=== PATIENT | male | born 1930 | race Hispanic/Latino ===

== ENCOUNTER 2017-04-18 09:50 | Emergency (ER) | payer MEDICARE ==
[2017-04-18 09:50] VITALS: BMI 31.1
[2017-04-18] MEDS ORDERED: Famotidine 20mg/50ml 20 MG/50 ML BAG IVPB STA (11:07)
--- NOTE | 2017-04-18 11:18 | ED PDOC ---
Arrival/HPI - General Chief Complaint: GI Problem Time Seen by Provider: 04/18/17 10:58 Historian: Patient - History of Present Illness Narrative History of Present Illness (Text): 04/18/17 11:14 A 86 year old male, whose past medical history includes hypertension, atrial fibrillation, CAD and open heart surgery, presents to the emergency department complaining of increased nausea for 3 days. Patient also reports severe right arm and shoulder pain for one week. Patient was seen by his PMD for same pain and diagnosed with musculoskeletal. Patient denies any fever, chills, vomiting, diarrhea, abdominal pain, chest pain, shortness of breath or any other complaints. Time/Duration: 1 week Symptom Course: Unchanged Quality: Other Severity Level: Severe Context: Home Past Medical History - Provider Review Nursing Documentation Reviewed: Yes - Infectious Disease Hx of Infectious Diseases: None - Tetanus Immunization Tetanus Immunization: Unknown - Cardiac Hx Cardiac Disorders: Yes (cabg 4 vessels) Hx Hypertension: Yes - Pulmonary Hx Respiratory Disorders: No - Neurological HX Cerebrovascular Accident: Yes - HEENT Hx HEENT Disorder: Yes (pt takes timolol eye gtts, but can't remember why) Hx Cataracts: Yes (b/l sx) Hx Glaucoma: Yes (B/L) Other/Comment: [place], uses hearing aids - Renal Hx Renal Disorder: No - Endocrine/Metabolic Hx Diabetes Mellitus Type 2: Yes - Hematological/Oncological Hx Blood Disorders: No - Integumentary Hx Dermatological Disorder: No - Musculoskeletal/Rheumatological Hx Falls: Yes (past) - Gastrointestinal Hx Gastrointestinal Disorders: Yes Hx Gastroesophageal Reflux: Yes Hx Gastrointestinal Ulcer: Yes - Genitourinary/Gynecological Hx Genitourinary Disorders: Yes Hx Hematuria: Yes Hx Prostate Problems: Yes (TUR) Hx Urinary Tract Infection: Yes - Psychiatric Hx Psychophysiologic Disorder: No Hx Depression: Yes Hx Emotional Abuse: No Hx Physical Abuse: No Hx Substance Use: No - Surgical History Hx Appendectomy: Yes Hx Cardiac Catheterization: Yes Hx Cholecystectomy: Yes Hx Open Heart Surgery: Yes Other/Comment: meatal stenosis sx, carpal tunnel left hand - Anesthesia Hx Anesthesia Reactions: Yes (laryngeal spasm after fentanyl, according to family) Hx Malignant Hyperthermia: No - Suicidal Assessment Feels Threatened In Home Enviroment: No Family/Social History - Physician Review Nursing Documentation Reviewed: Yes Family/Social History: No Known Family HX Smoking Status: Former Smoker Hx Alcohol Use: No Hx Substance Use: No Hx Substance Use Treatment: No Allergies/Home Meds Allergies/Adverse Reactions: Allergies fentanyl Allergy (Verified 03/23/16 19:08) laryengeal spasm anesthesia reaction laryngeal spasm Home Medications: Home Meds Medication Instructions Recorded Confirmed Atorvastatin Calcium [Lipitor] 10 mg PO DAILY 11/17/11 04/18/17 Metformin HCl [Metformin HCl] 500 mg PO BID 04/11/15 04/18/17 Tamsulosin [Flomax] 0.4 mg PO DAILY 04/11/15 04/18/17 Timolol 0.5% Ophth [Timoptic 0.5% 1 drop OU DAILY 04/11/15 04/18/17 Ophth Soln] Ranitidine HCl [Zantac] 150 mg PO BID 03/23/16 04/18/17 Apixaban [Eliquis] 2.5 mg PO BID 04/18/17 04/18/17 DULoxetine [Cymbalta] 30 mg PO DAILY 04/18/17 04/18/17 Metoclopramide [Reglan] 2.5 mg PO PRN PRN 04/18/17 04/18/17 Phenobarb/Hyoscy/Atropine/Scop 16.2 mg PO PRN 04/18/17 04/18/17 [ Elixir] Polyethylene Glycol 3350 0 gm PO DAILY 04/18/17 04/18/17 [Laxaclear] Sucralfate [Carafate] 1 gm PO PRN PRN 04/18/17 04/18/17 traMADol [Ultram] 50 mg PO PRN PRN 04/18/17 04/18/17 Review of Systems - Physician Review All systems were reviewed & negative as marked: Yes - Review of Systems Constitutional: absent: Fevers, Night Sweats Respiratory: absent: SOB Cardiovascular: absent: Chest Pain Gastrointestinal: Nausea. absent: Abdominal Pain, Diarrhea, Vomiting Musculoskeletal: Other (right arm and shoulder pain) Physical Exam Vital Signs Reviewed: Yes Vital Signs Temp Pulse Resp BP Pulse Ox 04/18/17 11:53 98.1 F 61 17 147/99 H 98 04/18/17 09:56 97.6 F 72 18 116/72 99 Temperature: Afebrile Blood Pressure: Normal Pulse: Regular Respiratory Rate: Normal Appearance: Positive for: Well-Appearing, Non-Toxic, Comfortable Pain Distress: None Mental Status: Positive for: Alert and Oriented X 3 - Systems Exam Head: Present: Atraumatic, Normocephalic Pupils: Present: PERRL Extroacular Muscles: Present: EOMI Conjunctiva: Present: Normal Mouth: Present: Moist Mucous Membranes Neck: Present: Normal Range of Motion. No: JVD Respiratory/Chest: Present: Clear to Auscultation, Good Air Exchange. No: Respiratory Distress, Accessory Muscle Use Cardiovascular: Present: Normal S1, S2, Irregular Rhythm (but controlled). No: Murmurs Abdomen: Present: Normal Bowel Sounds. No: Tenderness, Distention, Peritoneal Signs, Rebound, Guarding, Mass/Organomegaly Upper Extremity: Present: Normal ROM, NORMAL PULSES, Tenderness (reproduible right arm pain with palpation and movment), Neurovascularly Intact. No: Cyanosis, Edema, Swelling, Erythema, Temperature Abnormalties, Deformity Lower Extremity: Present: Normal Inspection. No: Edema Neurological: Present: GCS=15, CN II-XII Intact, Speech Normal, Motor Func Grossly Intact, Normal Sensory Function, Normal Cerebellar Funct Skin: Present: Warm, Dry, Normal Color. No: Rashes Psychiatric: Present: Alert, Oriented x 3, Normal Insight, Normal Concentration Medical Decision Making ED Course and Treatment: 04/18/17 11:14 Impression: A 86 year old male with nausea. Patient reports right arm and shoulder pain. Plan: -- Abdomen xray -- EKG -- Labs -- Zofran and Pepcid -- Reassess and disposition Progress Notes: EKG shows sinus bradycardia at 64 BPM with premature atrial complexes, with no changes from prior on 03/23/16. Interpreted by me. 04/18/17 13:30 Abdomen x-ray: Creator : Niranjan Mason MD FINDINGS: BOWEL: Normal. No obstruction. No free air. BONES: Normal. OTHER FINDINGS: None. IMPRESSION: No active disease. 04/18/17 13:30 Right shoulder x-ray: Creator : Niranjan Mason MD FINDINGS: BONES: Normal. No fracture. JOINTS: Normal. Glenohumeral and acromioclavicular joints preserved. No osteoarthritis. SOFT TISSUES: Normal. OTHER FINDINGS: None. IMPRESSION: Normal radiographs of the right shoulder. - Lab Interpretations Lab Results: 04/18/17 11:40 04/18/17 11:40 Lab Results 04/18/17 11:40: Sodium 139, Potassium 4.8, Chloride 102, Carbon Dioxide 28, Anion Gap 14, BUN 37 H, Creatinine 2.2 H, Est GFR ( Amer) 34, Est GFR ( Non-Af Amer) 28, Random Glucose 146 H, Calcium 9.4, Total Bilirubin 0.6, AST 26 , ALT 18, Alkaline Phosphatase 56, Troponin I 0.03, Total Protein 6.2, Albumin 3.5, Globulin 2.8, Albumin/Globulin Ratio 1.2 04/18/17 11:40: WBC 6.5 D, RBC 4.57, Hgb 13.0 L, Hct 38.2 L, MCV 83.6, MCH 28.4 , MCHC 34.0, RDW 13.3, Plt Count 143, MPV 11.8 H, Gran % 77.3 H, Lymph % (Auto) 10.1 L, Tripp % (Auto) 8.5 H, Eos % (Auto) 3.6, Baso % (Auto) 0.5, Gran # 4.99, Lymph # (Auto) 0.7 L, Tripp # (Auto) 0.6, Eos # (Auto) 0.2, Baso # (Auto) 0.03 I have reviewed the lab results: Yes - RAD Interpretation Radiology Orders: 04/18/17 11:08 obstructive [ABD 2 VIEWS (FLAT/UP OR DECUB)] [RAD] Stat 04/18/17 12:25 SHOULDER RIGHT [RAD] Stat - Medication Orders Current Medication Orders: Discontinued Medications Famotidine (Pepcid 20mg/50ml Premix) 20 mg in 50 mls @ 100 mls/hr IVPB STAT STA Stop: 04/18/17 11:36 Last Admin: 04/18/17 11:34 Dose: 100 mls/hr eMAR Start Stop Document 04/18/17 11:34 HI (Rec: 04/18/17 11:34 HI [id number]) Intravenous Solution Start Date 04/18/17 Start Time 11:34 End Date 04/18/17 End time 12:05 Total Infusion Time 31 Ondansetron HCl (Zofran Inj) 4 mg IVP STAT STA Stop: 04/18/17 11:08 Last Admin: 04/18/17 11:34 Dose: 4 mg IVP Administration Document 04/18/17 11:34 HI (Rec: 04/18/17 11:34 OH [id number]) Charges for Administration # of IVP Administrations 1 Tramadol HCl (Ultram) 50 mg PO STAT STA Stop: 04/18/17 12:26 Last Admin: 04/18/17 13:22 Dose: 50 mg MAR Pain Assessment Document 04/18/17 13:22 HI (Rec: 04/18/17 13:22 [id number]) Pain Reassessment Is this a pain reassessment? No Disposition/Present on Arrival - Present on Arrival Any Indicators Present on Arrival: No History of DVT/PE: No History of Uncontrolled Diabetes: No Urinary Catheter: No History of Decub. Ulcer: No History Surgical Site Infection Following: None - Disposition Have Diagnosis and Disposition been Completed?: Yes Diagnosis: Nausea, Bursitis of shoulder Disposition: HOME/ ROUTINE Disposition Time: 14:10 Patient Plan: Discharge Condition: STABLE Additional Instructions: see your doctor for further advice and management Prescriptions: Ondansetron [Zofran] 4 mg PO Q8H PRN #20 tab PRN Reason: Nausea/Vomiting traMADol [Ultram] 50 mg PO TID PRN #15 tab PRN Reason: Pain, Moderate (4-7) Referrals: Loiue De MD [Primary Care Provider] - Follow up with primary Forms: [employer] (Mongolian)
[2017-04-18 11:51] LABS: BASO # 0.03 K/mm3 (0.0-2.0); BASO % 0.5 % (0.0-3.0); EOS # 0.2 (0.0-0.7); EOS % 3.6 % (1.5-5.0); GRAN # 4.99 (1.4-6.5); GRAN % 77.3 % (50.0-68.0); LYMPH # 0.7 (1.2-3.4); LYMPH % 10.1 % (22.0-35.0); MEAN CELL VOLUME 83.6 fl (80.0-105.0); MEAN CORPUSCULAR HEMOGLOBIN 28.4 pg (25.0-35.0); MEAN PLATELET VOLUME 11.8 fl (7.0-11.0); MONO # 0.6 (0.1-0.6); MONO % 8.5 % (1.0-6.0); RBC 4.57 10^6/uL (3.5-6.1); RED CELL DISTRIBUTION WIDTH 13.3 % (11.5-14.5); WHITE BLOOD COUNT 6.5 10^3/ul (4.5-11.0)
[2017-04-18 11:55] VITALS: TEMP 98.1
[2017-04-18 12:00] LABS: ALB/GLOB RATIO 1.2 (1.1-1.8); ALBUMIN 3.5 g/dL (3.0-4.8); CALCIUM 9.4 mg/dL (8.4-10.5)
[2017-04-18 12:12] LABS: TROPONIN I 0.03 ng/mL
--- NOTE | 2017-04-18 13:28 | RAD ---
HISTORY: nausea COMPARISON: No prior. FINDINGS: BOWEL: Normal. No obstruction. No free air. BONES: Normal. OTHER FINDINGS: None. IMPRESSION: No active disease.
--- NOTE | 2017-04-18 13:29 | RAD ---
PROCEDURE: Radiographs of the Right Shoulder HISTORY: pain COMPARISON: No prior. FINDINGS: BONES: Normal. No fracture. JOINTS: Normal. Glenohumeral and acromioclavicular joints preserved. No osteoarthritis. SOFT TISSUES: Normal. OTHER FINDINGS: None. IMPRESSION: Normal radiographs of the right shoulder.
[2017-04-18 14:06] VITALS: BP 149/69; PULSE 64; RESP 16; O2SAT 97
--- NOTE | 2017-04-18 18:55 | CARD ---
APPROVED REPORT EKG Measurement Heart [id number] <Conclusion> Sinus bradycardia with premature supraventricular complexes Left axis deviation Right bundle branch block Abnormal ECG
== END 2017-04-18 14:07 | disposition home or self-care (01) ==
LOC: ED 09:50
DX: R11.0 Nausea (principal); M75.51 Bursitis of right shoulder; I10 Essential (primary) hypertension; Z95.1 Presence of aortocoronary bypass graft
CPT/HCPCS: 73030; 74019; 80053; 84484; 85025; 93005; 96365; 96375; 99284; J2405

== ENCOUNTER 2018-02-19 17:44 | Observation (INO) | payer MEDICARE ==
[2018-02-19 17:58] VITALS: BMI 31.4
[2018-02-19 18:40] LABS: BASO # 0.03 K/mm3 (0.0-2.0); BASO % 0.5 % (0.0-3.0); EOS # 0.2 (0.0-0.7); EOS % 2.6 % (1.5-5.0); GRAN # 4.93 (1.4-6.5); GRAN % 75.9 % (50.0-68.0); HEMOGLOBIN 13.2 g/dL (14.0-18.0); LYMPH # 0.9 (1.2-3.4); LYMPH % 14.5 % (22.0-35.0); MEAN CELL VOLUME 82.3 fl (80.0-105.0); MEAN CORPUSCULAR HEMOGLOBIN 27.5 pg (25.0-35.0); MEAN CORPUSCULAR HGB CONC 33.4 g/dl (31.0-37.0); MONO # 0.4 (0.1-0.6); MONO % 6.5 % (1.0-6.0); RBC 4.8 10^6/uL (3.5-6.1); RED CELL DISTRIBUTION WIDTH 13.9 % (11.5-14.5); WHITE BLOOD COUNT 6.5 10^3/uL (4.5-11.0)
--- NOTE | 2018-02-19 18:45 | ED PDOC ---
Arrival/HPI - General Chief Complaint: Shortness Of Breath Time Seen by Provider: 02/19/18 17:58 Historian: Patient, Family - History of Present Illness Narrative History of Present Illness (Text): 02/19/18 18:42 An 87 year old male, whose past medical history includes diabetes, A- Fib on Eliquis, hypertension, CAD and open heart surgery, presents for further evaluation of 1 week duration dyspnea on exertion. The patient states that when he is exerting himself, he experiences heavy breathing. His family member reports that she hears him wheezing recently. The patient notes that his PMD and [employer] were not able to see him today, so he decided to come into the emergency department. He denies fevers, chills, headache, dizziness, chest pain, cough, abdominal pain, nausea, vomiting, diarrhea, back pain, neck pain, ur inary/bowel changes, or any other complaint. PMD: Dr. Alaina De [employer]: Dr. Matute GI: Dr. Sibley Symptom Onset: Sudden Symptom Course: Unchanged Activities at Onset: Rest, Light Context: Home Past Medical History - Provider Review Nursing Documentation Reviewed: Yes - Infectious Disease Hx of Infectious Diseases: None - Tetanus Immunization Tetanus Immunization: Unknown - Cardiac Hx Cardiac Disorders: Yes (cabg 4 vessels) Hx Hypertension: Yes - Pulmonary Hx Respiratory Disorders: No - Neurological Hx Neurological Disorder: Yes HX Cerebrovascular Accident: Yes - HEENT Hx HEENT Disorder: Yes (pt takes timolol eye gtts, but can't remember why) Hx Cataracts: Yes (b/l sx) Hx Glaucoma: Yes (B/L) Other/Comment: [place], uses hearing aids - Renal Hx Renal Disorder: No - Endocrine/Metabolic Hx Endocrine Disorders: Yes Hx Diabetes Mellitus Type 2: Yes - Hematological/Oncological Hx Blood Disorders: No - Integumentary Hx Dermatological Disorder: No - Musculoskeletal/Rheumatological Hx Musculoskeletal Disorders: No - Gastrointestinal Hx Gastrointestinal Disorders: Yes Hx Gastroesophageal Reflux: Yes Hx Gastrointestinal Ulcer: Yes - Genitourinary/Gynecological Hx Genitourinary Disorders: No - Psychiatric Hx Psychophysiologic Disorder: Yes Hx Depression: Yes Hx Physical Abuse: No Hx Substance Use: No - Surgical History Hx Appendectomy: Yes Hx Cardiac Catheterization: Yes Hx Cholecystectomy: Yes Hx Open Heart Surgery: Yes - Anesthesia Hx Anesthesia: Yes Hx Anesthesia Reactions: Yes (laryngeal spasm after fentanyl, according to family) Hx Malignant Hyperthermia: No - Suicidal Assessment Feels Threatened In Home Enviroment: No Family/Social History - Physician Review Nursing Documentation Reviewed: Yes Family/Social History: No Known Family HX Smoking Status: Former Smoker Hx Alcohol Use: No Hx Substance Use: No Hx Substance Use Treatment: No Allergies/Home Meds Allergies/Adverse Reactions: Allergies fentanyl Allergy (Verified 03/23/16 19:08) laryengeal spasm anesthesia reaction laryngeal spasm Home Medications: Home Meds Medication Instructions Recorded Confirmed Atorvastatin Calcium [Lipitor] 10 mg PO DAILY 11/17/11 04/18/17 Metformin HCl 500 mg PO BID 04/11/15 04/18/17 Tamsulosin [Flomax] 0.4 mg PO DAILY 04/11/15 04/18/17 Timolol 0.5% Ophth [Timoptic 0.5% 1 drop OU DAILY 04/11/15 04/18/17 Ophth Soln] Ranitidine HCl [Zantac] 150 mg PO BID 03/23/16 04/18/17 Apixaban [Eliquis] 2.5 mg PO BID 04/18/17 04/18/17 DULoxetine [Cymbalta] 30 mg PO DAILY 04/18/17 04/18/17 Metoclopramide [Reglan] 2.5 mg PO PRN PRN 04/18/17 04/18/17 Phenobarb/Hyoscy/Atropine/Scop 16.2 mg PO PRN 04/18/17 04/18/17 [ Elixir] Polyethylene Glycol 3350 0 gm PO DAILY 04/18/17 04/18/17 [Laxaclear] Sucralfate [Carafate] 1 gm PO PRN PRN 04/18/17 04/18/17 traMADol [Ultram] 50 mg PO PRN PRN 04/18/17 04/18/17 Review of Systems - Physician Review All systems were reviewed & negative as marked: Yes - Review of Systems Constitutional: absent: Fevers Respiratory: SOB Cardiovascular: REYES. absent: Chest Pain Gastrointestinal: absent: Abdominal Pain, Stool Changes, Diarrhea, Nausea, Vomiting Genitourinary Male: absent: Urinary Output Changes Musculoskeletal: absent: Back Pain, Neck Pain Neurological: absent: Headache, Dizziness Physical Exam Vital Signs Reviewed: Yes Vital Signs Temp Pulse Resp BP Pulse Ox 12/26/18 18:25 54 L 18 98 02/19/18 17:57 97.4 F L 131/72 Temperature: Hypothermic Blood Pressure: Normal Pulse: Regular Respiratory Rate: Normal Appearance: Positive for: Well-Appearing, Non-Toxic, Comfortable Pain Distress: None Mental Status: Positive for: Alert and Oriented X 3 - Systems Exam Head: Present: Atraumatic, Normocephalic Pupils: Present: PERRL Extroacular Muscles: Present: EOMI Conjunctiva: Present: Normal Mouth: Present: Moist Mucous Membranes Neck: Present: Normal Range of Motion Respiratory/Chest: Present: Clear to Auscultation, Good Air Exchange, Other (Old sternotomy scar). No: Respiratory Distress, Accessory Muscle Use Cardiovascular: Present: Regular Rate and Rhythm, Normal S1, S2. No: Murmurs Abdomen: No: Tenderness, Distention, Peritoneal Signs Back: Present: Normal Inspection Upper Extremity: Present: Normal Inspection. No: Cyanosis, Edema Lower Extremity: Present: Edema (+2 pitting edema bilaterally) Neurological: Present: GCS=15, CN II-XII Intact, Speech Normal Skin: Present: Warm, Dry, Normal Color. No: Rashes Psychiatric: Present: Alert, Oriented x 3, Normal Insight, Normal Concentration Medical Decision Making ED Course and Treatment: 02/19/18 18:46 Impression: An 87 year old male presents to the emergency department with a complaint of dyspnea on exertion for 1 week. Differential Diagnosis included but are not limited to: CHF Arrhythmia Plan: -- EKG -- Chest X-ray -- Labs --Lasix -- Reassess and disposition Prior Visits: Notes and results from previous visits were reviewed. Progress Notes: 02/19/18 19:55 BNP noted to be elevated to 9750 with elevated blood pressure. Discussed case with Dr. Hollis(PCP) who requests patient to stay for Observation with cardiology to evaluate in the morning. Shared decision making with patient and who understand need for admission. Patient is stable for transfer to telemetry floor. - Lab Interpretations Lab Results: 02/19/18 18:28 Lab Results 02/19/18 18:28: WBC 6.5, RBC 4.80, Hgb 13.2 L, Hct 39.5 L, MCV 82.3, MCH 27.5, MCHC 33.4, RDW 13.9, Plt Count 161, MPV 11.0, Gran % 75.9 H, Lymph % (Auto) 14.5 L, Winston % (Auto) 6.5 H, Eos % (Auto) 2.6, Baso % (Auto) 0.5, Gran # 4.93, Lymph # (Auto) 0.9 L, Winston # (Auto) 0.4, Eos # (Auto) 0.2, Baso # (Auto) 0.03 I have reviewed the lab results: Yes - RAD Interpretation Radiology Orders: 02/19/18 18:07 CHEST PORTABLE [RAD] Stat - EKG Interpretation EKG Interpretation (Text): EKG: Ordered, reviewed, and independently interpreted the EKG. Rate : 95 BPM Rhythm : Irregularly Irregular Interpretation : RBBB. No T wave inversion. Interpreted by ED Physician: Yes Type: 12 lead EKG - Scribe Statement The provider has reviewed the documentation as recorded by the Scribe Lian Stark Provider Scribe Attestation: All medical record entries made by the Scribe were at my direction and personally dictated by me. I have reviewed the chart and agree that the record accurately reflects my personal performance of the history, physical exam, medical decision making, and the department course for this patient. I have also personally directed, reviewed, and agree with the discharge instructions and disposition. Disposition/Present on Arrival - Present on Arrival Any Indicators Present on Arrival: No History of DVT/PE: No History of Uncontrolled Diabetes: No Urinary Catheter: No History of Decub. Ulcer: No History Surgical Site Infection Following: None - Disposition Have Diagnosis and Disposition been Completed?: Yes Diagnosis: CHF (congestive heart failure) Disposition: HOSPITALIZED Disposition Time: 19:59 Patient Plan: Observation Condition: STABLE Discharge Instructions (ExitCare): Heart Failure (ED) Forms: [employer] (Kazakh)
[2018-02-19 18:50] LABS: ALB/GLOB RATIO 1.3 (1.1-1.8); ALBUMIN 3.8 g/dL (3.0-4.8); CALCIUM 9.1 mg/dL (8.4-10.5)
[2018-02-19 18:58] LABS: TROPONIN I 0.05 ng/mL
[2018-02-19 21:23] LABS: URINE BILIRUBIN NEGATIVE (NEGATIVE); URINE BLOOD TRACE-INTACT (NEGATIVE); URINE GLUCOSE (UA) NEGATIVE (NEGATIVE); URINE LEUKOCYTE ESTERASE NEGATIVE Leu/uL (NEGATIVE); URINE PROTEIN >=300 mg/dL (<30 mg/dL); URINE UROBILINOGEN 0.2 E.U./dL (<1 E.U./dL)
[2018-02-19 21:25] LABS: URINE COLOR YELLOW (YELLOW)
[2018-02-19 21:26] LABS: URINE APPEARANCE SL CLOUDY (CLEAR)
[2018-02-19 21:34] LABS: URINE BACTERIA FEW /hpf
[2018-02-19] MEDS ORDERED: Influenza Vaccine 60 mcg/0.5 mL SYR (4YR UP) IM ONE (23:00)
[2018-02-19] MEDS ORDERED: Pneumococcal 23-Valent Vaccine IM ONE (23:00)
--- NOTE | 2018-02-20 00:13 | CARD ---
APPROVED REPORT Date of service: 02/19/2018 EKG Measurement Heart [id number] <Conclusion> Atrial fibrillation Left axis deviation Right bundle branch block Abnormal ECG
[2018-02-20] MEDS ORDERED: Metoprolol 1 mg/ml Inj IVP STA (05:33)
[2018-02-20] MEDS ORDERED: Metoprolol 1 mg/ml Inj IVP ONE (05:55)
[2018-02-20 05:59] LABS: BASO # 0.04 K/mm3 (0.0-2.0); BASO % 0.6 % (0.0-3.0); EOS # 0.2 (0.0-0.7); EOS % 3.7 % (1.5-5.0); GRAN # 4.47 (1.4-6.5); HEMOGLOBIN 12.8 g/dL (14.0-18.0); LYMPH # 0.9 (1.2-3.4); MEAN CELL VOLUME 83.6 fl (80.0-105.0); MEAN CORPUSCULAR HEMOGLOBIN 26.9 pg (25.0-35.0); MEAN CORPUSCULAR HGB CONC 32.2 g/dl (31.0-37.0); MEAN PLATELET VOLUME 12.1 fl (7.0-11.0); MONO # 0.6 (0.1-0.6); MONO % 9.7 % (1.0-6.0); RBC 4.76 10^6/uL (3.5-6.1); RED CELL DISTRIBUTION WIDTH 13.9 % (11.5-14.5); WHITE BLOOD COUNT 6.2 10^3/uL (4.5-11.0)
[2018-02-20 06:41] VITALS: PULSE 120; RESP 18; TEMP 97.7; O2SAT 100
[2018-02-20 07:42] LABS: ALB/GLOB RATIO 1.3 (1.1-1.8); ALBUMIN 3.6 g/dL (3.0-4.8)
--- NOTE | 2018-02-20 09:24 | RAD ---
Date of service: 02/19/2018 HISTORY: shortness of breath COMPARISON: No prior. FINDINGS: LUNGS: No active pulmonary disease. PLEURA: No significant pleural effusion identified, no pneumothorax apparent. CARDIOVASCULAR: Aortic calcification Moderate cardiomegaly no pulmonary vascular congestion. OSSEOUS STRUCTURES: Sternal wires VISUALIZED UPPER ABDOMEN: Normal. OTHER FINDINGS: None. IMPRESSION: No active disease.
--- NOTE | 2018-02-20 10:16 | CON ---
DATE: 02/20/2018 INDICATION: Shortness of breath. HISTORY OF PRESENT ILLNESS: This is an 87-year-old man, known to our practice, admitted with recent dyspnea on exertion for about a week getting worse, associated with throat discomfort. The symptoms were chiefly with exertion such as climbing stairs and walking. There was no definite chest pain reported. No orthopnea, PND, syncope, presyncope, lightheadedness, dizziness or vertigo. No palpitations, edema, claudication, fever, chills, cough, sputum production, hemoptysis, abdominal pain, nausea, vomiting, diarrhea, constipation, melena. PAST MEDICAL HISTORY: His past medical history is notable for coronary artery disease. He underwent coronary bypass surgery in the remote past. He has chronic atrial fib, on Eliquis. He has diabetes, hypertension, GERD, glaucoma, cataracts and BPH. There is no history of rheumatic fever, congestive heart failure, angina, stroke, TIA or gout. MEDICATIONS: Medications at the time of admission include Lipitor, metformin, Flomax, Zantac, Eliquis Cymbalta, Reglan, , Carafate, Ultram. ALLERGIES: HE NOTES AN ALLERGY TO FENTANYL. SOCIAL HISTORY: He lives at home. He is ambulatory. He does not smoke cigarettes. He does not drink alcohol significantly. FAMILY HISTORY: Noncontributory. REVIEW OF SYSTEMS: Ten-point review of systems is otherwise unremarkable except as noted above. PHYSICAL EXAMINATION: GENERAL: He is a well-developed male, lying in bed on telemetry, in no acute distress. VITAL SIGNS: Notable for atrial fibrillation, 54-120 beats per minute, mostly in the 90s. He is afebrile. Blood pressure 141/95, respirations 18-20, O2 sat 96-100% on nasal cannula. HEENT: Exam reveals no neck vein distention, thyromegaly, carotid bruits. Mucous membranes moist. Conjunctivae pink. NECK: Supple. LUNGS: Lung carranza clear. CARDIAC: Examination of the heart revealed normal first and second heart sounds, an irregular rhythm. Soft systolic murmur along the left sternal border. ABDOMEN: Soft. Bowel sounds present. No mass, organomegaly, tenderness, rebound, guarding, CVA tenderness or palpable abdominal aortic aneurysm. EXTREMITIES: Extremity exam revealed no cyanosis, clubbing or edema. NEUROLOGICALLY: Awake, alert and oriented. PSYCHIATRIC: Normal as to mood and affect. SKIN: Warm and dry. No rash or cellulitis. LABORATORY AND IMAGING STUDIES: EKG demonstrates atrial fibrillation, right bundle-branch block, no acute changes. Chest x-ray is a portable study, it is not interpreted yet. I do not see infiltrate, effusion or evidence of congestive heart failure. There is cardiomegaly and postop changes. White count is normal, hemoglobin 12.8, hematocrit 39.8, platelet count 160,000. D-dimer elevated at 346. Electrolytes, unremarkable. BUN 25, creatinine 2.3, blood sugar 112. Magnesium low with 1.6. LFTs unremarkable. Two troponins are negative. BNP 9710. Urinalysis is noted. IMPRESSION: Rambo Monaco is an 87-year-old male with coronary artery disease, remote coronary bypass surgery, who presents with a short history of increasing dyspnea on exertion along with throat discomfort. PLAN: At this time, he is admitted to telemetry. I will continue his cardiac meds including Lipitor and Eliquis. We will give him metformin. We will check an echocardiogram, repeat his EKG, review his old records. He should be considered for nuclear stress testing, possibly on outpatient basis. We will monitor I's and O's and check stool for occult blood. I will follow along with you. I will make additional recommendations based on his clinical course. Kareem Chiang MD MTDD
[2018-02-20 11:54] VITALS: BP 180/92
== END 2018-02-20 13:40 | disposition home or self-care (01) ==
LOC: ED 17:44 → ERH 19:52 → 2RNO 20:55
PROVIDERS: ADMIT Internal Medicine; ATTEND Internal Medicine
DX: I25.10 Atherosclerotic heart disease of native coronary artery without angina pectoris (principal); I10 Essential (primary) hypertension; I48.2 Chronic atrial fibrillation; N40.0 Benign prostatic hyperplasia without lower urinary tract symptoms; E11.36 Type 2 diabetes mellitus with diabetic cataract; K21.9 Gastro-esophageal reflux disease without esophagitis; H40.9 Unspecified glaucoma; Z79.01 Long term (current) use of anticoagulants; Z95.1 Presence of aortocoronary bypass graft
CPT/HCPCS: 36415; 71045; 80053; 81001; 83735; 83880; 84100; 84484; 85025; 85378; 93005; 96374; 99285; G0378; J1940